=== PATIENT | female | born 1965 | race Caucasian/White ===

== ENCOUNTER 2018-01-19 05:59 | Day surgery (SDC) | payer OTHER ==
[2018-01-19] MEDS ORDERED: CIPROFLOXACIN 400MG/D5W 200 ML IVPB (06:00)
[2018-01-19] MEDS ORDERED: LIDOCAINE 2% (SDV) 5 ML INJ (07:00)
[2018-01-19] MEDS ORDERED: CIPRO 400 MG/200 ML D5W IVPB (07:00)
[2018-01-19] MEDS ORDERED: ONDANSETRON 4 MG INJ (07:00)
[2018-01-19] MEDS ORDERED: CEFAZOLIN 1 GM INJ (07:00)
[2018-01-19] MEDS ORDERED: DEXAMETHASONE 4 MG/ML 1 ML INJ (07:00)
[2018-01-19] MEDS ORDERED: ROCURONIUM 50 MG INJ ×2 (07:00→07:42)
[2018-01-19] MEDS ORDERED: PROPOFOL 20 ML (07:14)
[2018-01-19] MEDS: LACTATED RINGER'S 1,000 ML IV (07:22)
[2018-01-19] MEDS: IOHEXOL 300MG/ML 30 ML BTL (07:52)
[2018-01-19] MEDS ORDERED: KETOROLAC 30 MG INJ IV (08:00)
[2018-01-19] MEDS ORDERED: LABETALOL HCL 20MG INJ IV (08:00)
[2018-01-19] MEDS ORDERED: METOCLOPRAMIDE 10 MG INJ IV (08:00)
[2018-01-19] MEDS ORDERED: ONDANSETRON 4 MG INJ IV (08:00)
[2018-01-19] MEDS ORDERED: MIDAZOLAM 1 MG/ML 2 ML INJ IV (08:00)
[2018-01-19] MEDS ORDERED: DIPHENHYDRAMINE 50 MG INJ IV (08:00)
[2018-01-19] MEDS ORDERED: FENTAnyl 50 MCG/ML VIAL IV ×3 (08:00)
[2018-01-19] MEDS ORDERED: HYDROmorphONE 1 MG/5 ML IV SYRINGE IV ×3 (08:00)
[2018-01-19] MEDS ORDERED: OXYCODONE/ACETAMINOPHEN (5/325) TAB PO ×2 (08:00)
[2018-01-19] MEDS ORDERED: hydrALAzine 20 MG INJ IV (08:00)
[2018-01-19] MEDS ORDERED: ALBUTEROL 0.083% (NEB) 2.5 MG/3 ML AMP HHN (08:00)
[2018-01-19] MEDS ORDERED: MEPERIDINE 25 MG INJ IV (08:00)
== END 2018-01-19 10:34 | disposition home or self-care (01) ==
LOC: SDS 05:59
DX: N20.0 Calculus of kidney (principal)
CPT/HCPCS: 52356; 84703